=== PATIENT | female | born 1935 | race Caucasian/White ===

== ENCOUNTER 2017-08-08 22:25 | Observation (INO) | payer MEDICARE, OTHER ==
[2017-08-08] MEDS ORDERED: Sodium Chloride 0.9% 10 ML Syringe FLUSH PRN (22:50)
[2017-08-08] MEDS ORDERED: Morphine 4 MG/ML Syringe IVPUSH ONE (23:05)
[2017-08-09] MEDS ORDERED: Morphine 2 MG/ML Syringe IVPUSH PRN (00:06)
[2017-08-09] MEDS: Morphine 15 MG Tab.ER PO SCH ×3 (11:00→22:53)
--- NOTE | 2017-08-09 13:35 | HP ---
ADMISSION DATE: 08/09/2017 HISTORY OF PRESENT ILLNESS: Aliya Salcedo is an 82-year-old, female, admitted with acute chest pain. Began problematic, severe in nature. Some shortness of breath. The pain intensified. Seen at [place] [facility]. Admitted to hospital for treatment and intervention. Daily medications include: MS Contin 15 mg one p.o. b.i.d. for chronic leg pain, lisinopril/hydrochlorothiazide 20/12.5, one p.o. daily for hypertension, aspirin with caffeine 400/32, Dulcolax 5 mg two p.o. at bedtime stool enhancement, calcium 600 mg 1 daily, Ocuvite vitamin, multivitamin, and vitamin D3. ALLERGIES: No medication, environmental, or latex allergies. 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 Surgical interventions as noted. She has had a previous appendectomy. No other operative procedures, hospitalizations, unusual childhood diseases, major injuries, or fractures. SOCIAL HISTORY: Lives alone, although sister in close contact. . 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 Worked in [employer] and the [email or web address] industry. Nonsmoker. No alcohol consumption. No illicit drug use. FAMILY HISTORY: Noncontributory. REVIEW OF SYSTEMS: Chest pain as noted, bowels have been a bit irregular. Sees well, intact teeth, eats without difficulty. Bowels have been fine. Bladder has been fine. No blood in stool. Some constipation. Generalized joint complaints. PHYSICAL EXAMINATION: VITAL SIGNS: Stable and documented per exam. GENERAL: A young lady, cooperative, conversant, in good spirits. Saturations good, no oxygen. HEENT: Funduscopic benign. Bright TMs. Clear nasal discharge. Mouth and oropharynx clear. CHEST: Clear in all lung clifford. HEART: Regular without ectopy or murmur. ABDOMEN: Non-benign. A large palpable left lateral midline abdominal mass, pulsatile. PELVIC: Deferred. EXTREMITIES: Well perfused, surgical changes and radiation changes in the left lower extremity noted. LABORATORY STUDIES: White count 26,000, hemoglobin 10.3, hematocrit 31.1. Electrolytes satisfactory. GFR 48. Troponin negative x2. D-dimer not available. ASSESSMENT: Atypical chest pain, noncardiac in nature, DVT always a concern. PLAN: Intervention care, close observation, studies are appreciated, intervention, care, and treatment. /[id number] GIOVANA/KARLA
--- NOTE | 2017-08-10 06:59 | ER ---
DATE SEEN: 08/08/2017 CHIEF COMPLAINT: Chest pain. HISTORY OF PRESENT ILLNESS: This is an 82-year-old female who was brought in because of chest pain. She described tightness and chest discomfort on the left that radiates to the neck, that started suddenly tonight. There is no cough, fever, or chills. 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 She underwent radiation palliative on July 29. SOCIAL HISTORY: Lives alone. Nonsmoker. PHYSICAL EXAMINATION: GENERAL: Anxious, but not in distress. VITAL SIGNS: Temperature 98.2, pulse 84. ENT: Negative. Neck: No thyromegaly. CHEST: Clear. CARDIOVASCULAR: Normal. ABDOMEN: Soft. EXTREMITIES: Nonpitting peripheral edema. LABORATORY DATA: White cell count 26.7, hemoglobin 10.3. Electrolytes were normal. Troponin less than 0.017. BNP is 870. EKG, no ST changes. Chest x- ray, no acute process. IMPRESSION: 1. Atypical chest pain. 2. Fibrosarcoma, metastatic. PLAN: Admit for observation, comfort, and pain control. The patient was given morphine 2 mg, which helped the symptoms significantly. We will do blood cultures and repeat CBC in the morning and Dr. Arce will take over care. TIME SEEN: 2315 hours. /[id number] DOMENIC/KARLA
[2017-08-10] MEDS ORDERED: Hydrochlorothiazide/Lisinopril 12.5-20 MG Tab PO SCH (09:00)
[2017-08-10] MEDS ORDERED: Morphine 15 MG Tab.ER PO SCH (11:00)
--- NOTE | 2017-08-10 13:10 | PN ---
DATE SEEN: 08/10/2017 SUBJECTIVE: Aliya Salcedo is an 82-year-old female, admitted with acute chest pain. Origin uncertain. PE intervention, i.e. CT deferred secondary to renal function, underlying disease. Has widely metastatic sarcoma, primary recurrent site left kidney. D-dimer mildly elevated at 600, nondiagnostic. She has been observed in the last 24 hours. Chest pain has not reappeared. Vital signs have been stable. O2 sats have been comfortable. Peculiar issue, white count 26,700 on admission, repeat 21,800. Hemoglobin 10.3 and 9.2, with neutrophilia. Electrolytes were otherwise stable. Troponin x2 was negative. OBJECTIVE: VITAL SIGNS: Temperature 36.7, blood pressure 98/66, respiratory rate 18, heart rate 76, and O2 saturation 93%. GENERAL: Appears comfortable. NECK: Benign. Thyroid small. CHEST: Clear in all lung clifford. HEART: Regular without ectopy or murmur. ABDOMEN: Palpable mass, left kidney. PLAN: We will repeat CBC, observe for clinical response. Blood cultures x2 were negative, complementary care and well being. Likely discharge home today. /[id number] GIOVANA/KARLA
--- NOTE | 2017-08-12 11:16 | DISCH ---
DISCHARGE DATE: 08/10/2017 CHIEF COMPLAINT: 1. Acute chest pain, not pathologic. 2. Metastatic fibrosarcoma. HOSPITAL COURSE: Aliya Salcedo is a delightful 82-year-old female, admitted through [place] [facility] with acute chest pain and moderate shortness of breath. She was seen in the ER, pain was managed and admitted to hospital for treatment. Chest x-ray revealed no major pathology. Laboratory studies were peculiar, white count 25,000 to 28,000 with neutrophilia. Blood cultures were negative. No other source of infection was present. Looking back at last laboratory tests January 2017 at , white count was 84,000. Blood cultures remained negative. Pain was absent. CT of lung for PE not felt necessary given symptoms and resolution of pain; chronic renal failure dictated issues of impact on her kidney function. D-dimer was mildly elevated at 600, not diagnostic enough. She was observed for 24 hours. Symptoms were absent. Breathing was appropriate. Comfortable in that regard. Repeat white count continued to be similarly elevated, i.e. 27,600; 21,800; and 28,400 on the day of discharge. Otherwise feeling well. Was comfortable with discharge. Medications reviewed. PHYSICAL EXAMINATION: NECK: Benign. Thyroid small. CHEST: Clear in all lung clifford. No adventitious sounds. HEART: Regular without ectopy or murmur. ABDOMEN: Palpable left kidney mass, right lateral abdomen. EXTREMITIES: Revealed surgical post radiation changes right lower extremity. ASSESSMENT: Shortness of breath and chest pain, resolved, origin uncertain. PLAN: Again, no clinical evidence of PE. Complementary care and well-being. Discharged with medications as appropriate. We will follow up with Dr. Emily Valdes, Radiation Oncology and partner in care at [facility]. /[id number] /BRUNOL CC: Emily Valdes, Radiation Oncology at [facility]
== END 2017-08-10 12:40 | disposition home or self-care (01) ==
LOC: FB.ED 22:25 → FB.MS 08-09 00:06
PROVIDERS: ADMIT Family Medicine; ATTEND Family Medicine
DX: R07.9 Chest pain, unspecified (principal); R06.02 Shortness of breath; Z79.82 Long term (current) use of aspirin; Z79.899 Other long term (current) drug therapy
CPT/HCPCS: 36415; 71045; 80048; 80053; 83880; 84165; 84484; 85025; 85027; 85379; 87040; 93005; 96374; 99285; A9270; G0378; J2270; J7050; 99284

== ENCOUNTER 2017-09-19 16:55 | Emergency (ER) | payer MEDICARE, BC ==
--- NOTE | 2017-09-19 18:29 | EDM.PDOC ---
ED HPI GENERAL MEDICAL PROBLEM - General Chief Complaint: Head Injury Stated Complaint: HEAD LAC Time Seen by Provider: 09/19/17 17:10 Source of Information: Reports: Patient, Family History Limitations: Reports: No Limitations - History of Present Illness INITIAL COMMENTS - FREE TEXT/NARRATIVE: c/o fall walking in kitchen, felt dizzy, reached out to support herself but fell down, no LOC has been dizzy before has a sarcoma in LLE with surgery 07/27, now with large LLQ abd mass, no obstruction of bladder or bowel in and out zabala today with 300 cc urine no injury except small lac on occiput HHN comes out 2x/wk PCP Dr Sandhu did want her to restart her diuretic tomorrow - Related Data Allergies Allergy/AdvReac Type Severity Reaction Status Date / Time No Known Allergies Allergy Verified 06/20/16 13:05 Home Meds: Home Meds Lisinopril/Hydrochlorothiazide [Lisinopril-Hctz 20-12.5 mg Tab] 1 tab PO DAILY 08/08/17 [History] Morphine [MS Contin] 15 mg PO BID 08/08/17 [History] Calcium Carbonate [Calcium] 600 mg PO DAILY 08/09/17 [History] Cholecalciferol (Vitamin D3) [Vitamin D3] 1,000 unit PO DAILY 08/09/17 [History] Dextran 70/Hypromellose [Artificial Tears] 1 drop EYEBOTH DAILY 08/09/17 [ History] Lutein/Minerals/Vit A,C & E [Ocuvite] 1 tab PO DAILY 08/09/17 [History] Multivitamin [Multi-Vitamin Daily] 1 tab PO DAILY 08/09/17 [History] Past Medical History HEENT History: Reports: Impaired Vision, Other (See Below) Other HEENT History: glasses Cardiovascular History: Reports: Heart Murmur Genitourinary History: Reports: Other (See Below) Other Genitourinary History: has renal cancer Oncologic (Cancer) History: Reports: Renal, Other (See Below) Other Oncologic History: also had tumor L leg,essentially on supportive care Dermatologic History: Reports: Other (See Below) Other Dermatologic History: discolored l lower leg due to radiation treatments - Past Surgical History Female Surgical History: Reports: None Social & Family History - Family History Family Medical History: Noncontributory - Caffeine Use Caffeine Use: Reports: Coffee Caffeine Use Comment: 1 cup/day ED ROS GENERAL - Review of Systems Review Of Systems: See Below Constitutional: Reports: No Symptoms HEENT: Reports: No Symptoms Respiratory: Reports: No Symptoms Cardiovascular: Reports: No Symptoms Endocrine: Reports: No Symptoms GI/Abdominal: Reports: No Symptoms : Reports: No Symptoms Musculoskeletal: Reports: No Symptoms Skin: Reports: Other (lac of occiput) Neurological: Reports: No Symptoms Psychiatric: Reports: No Symptoms Hematologic/Lymphatic: Reports: No Symptoms Immunologic: Reports: No Symptoms ED EXAM, HEAD INJURY - Physical Exam Exam: See Below Exam Limited By: No Limitations General Appearance: Alert, WD/WN, No Apparent Distress, Other (alert, conversant , pleasant, cheerful, wearing amplifiers over each ear, able to hear okay) Head: Scalp Lacerations, Other (2 cm lac at occiput, gap of 5 mm, just thru scalp, hair trimmed, cleaned by nursing with surgical soap and then with 4 x 4 by myself, tristian x 3 applied with closure of the gap) Eyes: Bilateral Eye: EOMI, Normal Inspection Nose: Normal Inspection, Normal Mucousa, No Blood Throat/Mouth: Normal Inspection, Normal Lips, Normal Teeth, Normal Oropharynx, No Airway Compromise Neck: Non-Tender, Full Range of Motion, Normal Alignment, Normal Inspection Respiratory: No Respiratory Distress, Lungs Clear, Normal Breath Sounds Cardiovascular: Regular Rate, Rhythm, Other (2/6 GAURI at LSB, there is 3+ edema to groin b/l, symmetric, compression stockings below knees b/l) Back Exam: Full Range of Motion, Normal Inspection, NT Extremities: Non-Tender Neurologic: social group worker II-XII nml As Tested, No Motor/Sensory Deficits, Alert, Normal Mood/Affect, Oriented x 3 Skin: Normal Color, Warm/Dry - [place] Coma Score Best Eye Response (Reji): (4) Open Spontaneously Best Verbal Response (Reji): (5) Oriented Best Motor Response (Alma): (6) Obeys Commands Course - Orders/Labs/Meds Orders: Active Orders 24 hr Category Date Time Status URINALYSIS W/MICROSCOPIC [UA W/MICROSCOPIC] [URIN] Stat Lab 09/19/17 17:40 Ordered Labs: Laboratory Tests 05/10/18 05/10/18 05/10/18 Range/Units 17:20 17:20 17:20 WBC 27.6 H (4.5-12.0) X10-3/uL RBC 4.35 (3.23-5.20) x10(6)uL Hgb 11.8 (11.5-15.5) g/dL Hct 36.3 (30.0-51.3) % MCV 83.5 (80-96) fL MCH 27.1 L (27.7-33.6) pg MCHC 32.5 (32.2-35.4) g/dL RDW 20.2 H (11.5-15.5) % Plt Count 76 L (125-369) X10(3)uL MPV 8.8 (7.4-10.4) fL Add Manual Diff Yes Neutrophils % (Manual) 92 H (46-82) % Band Neutrophils % 1 (0-6) % Lymphocytes % (Manual) 2 L (13-37) % Monocytes % (Manual) 3 L (4-12) % Eosinophils % (Manual) 1 (0-5) % Basophils % (Manual) 1 (0-2) % Anisocytosis Moderate H Sodium 132 L (135-145) mmol/L Potassium 5.6 H D (3.5-5.3) mmol/L Chloride 97 L D (100-110) mmol/L Carbon Dioxide 28 (21-32) mmol/L BUN 20 H (7-18) mg/dL Creatinine 1.2 H (0.55-1.02) mg/dL Est Cr Clr Drug Dosing TNP Estimated GFR (MDRD) 43 L (>60) BUN/Creatinine Ratio 16.7 (9-20) Glucose 126 H (80-116) mg/dL Calcium 8.6 (8.6-10.2) mg/dL Total Bilirubin 0.7 (0.1-1.3) mg/dL AST 14 D (5-25) IU/L ALT 6 L D (12-36) U/L Alkaline Phosphatase 167 H (56-112) IU/L NT-Pro-B Natriuret Pep 954 H (<=450) pg/mL Total Protein 5.9 L (6.0-8.0) g/dL Albumin 2.1 L (3.2-4.6) g/dL Globulin 3.8 g/dL Albumin/Globulin Ratio 0.6 Urine Color (YELLOW) Urine Appearance (CLEAR) Urine pH (5.0-6.5) Ur Specific [place] (1.010-1.025) Urine Protein (NEGATIVE) mg/dL Urine Glucose (UA) (NEGATIVE) mg/dL Urine Ketones (NEGATIVE) mg/dL Urine Occult Blood (NEGATIVE) Urine Nitrite (NEGATIVE) Urine Bilirubin (NEGATIVE) Urine Urobilinogen (NEGATIVE) mg/dL Ur Leukocyte Esterase (NEGATIVE) Urine RBC (0) Urine WBC (0) Ur Squamous Epith Cells (NS,R,O) Amorphous Sediment Urine Bacteria (NS) Urine Mucus (NS) 09/19/17 Range/Units 17:40 WBC (4.5-12.0) X10-3/uL RBC (3.23-5.20) x10(6)uL Hgb (11.5-15.5) g/dL Hct (30.0-51.3) % MCV (80-96) fL MCH (27.7-33.6) pg MCHC (32.2-35.4) g/dL RDW (11.5-15.5) % Plt Count (125-369) X10(3)uL MPV (7.4-10.4) fL Add Manual Diff Neutrophils % (Manual) (46-82) % Band Neutrophils % (0-6) % Lymphocytes % (Manual) (13-37) % Monocytes % (Manual) (4-12) % Eosinophils % (Manual) (0-5) % Basophils % (Manual) (0-2) % Anisocytosis Sodium (135-145) mmol/L Potassium (3.5-5.3) mmol/L Chloride (100-110) mmol/L Carbon Dioxide (21-32) mmol/L BUN (7-18) mg/dL Creatinine (0.55-1.02) mg/dL Est Cr Clr Drug Dosing Estimated GFR (MDRD) (>60) BUN/Creatinine Ratio (9-20) Glucose (80-116) mg/dL Calcium (8.6-10.2) mg/dL Total Bilirubin (0.1-1.3) mg/dL AST (5-25) IU/L ALT (12-36) U/L Alkaline Phosphatase (56-112) IU/L NT-Pro-B Natriuret Pep (<=450) pg/mL Total Protein (6.0-8.0) g/dL Albumin (3.2-4.6) g/dL Globulin g/dL Albumin/Globulin Ratio Urine Color Yellow (YELLOW) Urine Appearance Slightly cloudy (CLEAR) Urine pH 5.0 (5.0-6.5) Ur Specific [place] 1.020 (1.010-1.025) Urine Protein Negative (NEGATIVE) mg/dL Urine Glucose (UA) Normal (NEGATIVE) mg/dL Urine Ketones Negative (NEGATIVE) mg/dL Urine Occult Blood Negative (NEGATIVE) Urine Nitrite Negative (NEGATIVE) Urine Bilirubin Negative (NEGATIVE) Urine Urobilinogen Normal (NEGATIVE) mg/dL Ur Leukocyte Esterase Negative (NEGATIVE) Urine RBC 0-5 (0) Urine WBC 0-5 (0) Ur Squamous Epith Cells Moderate H (NS,R,O) Amorphous Sediment Few Urine Bacteria Few H (NS) Urine Mucus Few H (NS) Departure - Departure Time of Disposition: 18:32 Disposition: Home, Self-Care 01 Condition: Good Clinical Impression: Contusion of head, Scalp laceration, CHF exacerbation - Discharge Information Instructions: Stitches, [place], or Adhesive Wound Closure, Heart Failure Referrals: PCP,Unknown [Primary Care Provider] - Additional Instructions: Start the diuretic tomorrow as per Dr Sandhu's instructions. You are getting more and more fluid backed up behind the heart due to heart failure. The diuretic will help. Use a walker when on your feet. Move slowly so that your body weight is supported by both your legs and your arms. Sit down if you feel dizzy. Have tristian removed in 1 week. While infection is very unlikely, notify Dr Sandhu the same day for any increase in redness, swelling, pain, warmth, fever or drainage. For discomfort, as needed, take acetaminphen 500 mg 2 tabs 4 times a day. Return to ED if you are feeling worse. - My Orders Last 24 Hours: My Active Orders 09/19/17 17:40 URINALYSIS W/MICROSCOPIC [UA W/MICROSCOPIC] [URIN] Stat - Assessment/Plan Last 24 Hours: My Active Orders 09/19/17 17:40 URINALYSIS W/MICROSCOPIC [UA W/MICROSCOPIC] [URIN] Stat
== END 2017-09-19 18:45 | disposition home or self-care (01) ==
LOC: FB.ED 16:55
DX: S01.01XA Laceration without foreign body of scalp, initial encounter (principal); I50.9 Heart failure, unspecified; Z79.899 Other long term (current) drug therapy; W19.XXXA Unspecified fall, initial encounter; Y92.000 Kitchen of unspecified non-institutional (private) residence as the place of occurrence of the external cause
CPT/HCPCS: 12001; 36415; 51701; 80053; 81001; 83880; 85025; 99283; 99284

== ENCOUNTER 2017-09-25 12:19 | Observation (INO) | payer MEDICARE, BC ==
[2017-09-25] MEDS ORDERED: Bisacodyl 5 MG Tab PO PRN (15:23)
[2017-09-25] MEDS ORDERED: diphenhydrAMINE 25 MG Cap PO PRN (15:23)
[2017-09-25] MEDS ORDERED: Polyethylene Glycol 3350 Powder 17 GM Packet PO PRN (15:35)
[2017-09-25] MEDS ORDERED: Morphine 10 MG/ML Syringe IM PRN (15:44)
[2017-09-25] MEDS ORDERED: ASPIRIN PO SCH (15:45)
[2017-09-25] MEDS ORDERED: Non-Formulary Medication 1 Each (Furosemide [Furosemide] 20 MG) PO SCH (15:45)
[2017-09-25] MEDS ORDERED: Morphine 15 MG Tab.ER PO SCH (15:45)
[2017-09-25] MEDS ORDERED: CAFFEINE PO SCH (15:45)
[2017-09-25] MEDS: Furosemide 20 MG Tab *PTOM PO SCH (18:35)
[2017-09-25] MEDS ORDERED: Enoxaparin 30 MG/0.3 ML Syringe SUBCUT SCH (19:00)
--- NOTE | 2017-09-25 19:15 | PCM.HP ---
H&P History of Present Illness - General Date of Service: 09/25/17 Admit Problem/Dx: Admission Diagnosis/Problem Admission Diagnosis/Problem Dyspnea Source of Information: Family History Limitations: Reports: No Limitations - History of Present Illness Initial Comments - Free Text/Narative: This is an 82-year-old female patient with end-stage sarcoma the left lower extremity. She is staying with her sister who is just as old as she is. The patient fell a week ago and sustained laceration her head. Since then has become more weak to the point where her sister cannot take care of her. She is going to go to the intermediate in the next couple days but they didn't have a bed available yet. In the sister cannot lift her so she brought her into the ER. She was found to have hyponatremia, elevated white count with no signs of infection and renal failure. She that she always has a little runny nose patient denies fevers or chills, ear pain she has chest pain, cough etc. in the morning. She denies abdominal she has a BM in a week she has no diarrhea, dysuria, pyuria, hematuria. bilat legs Pain Score (Numeric/FACES): 2 - Related Data Allergies/Adverse Reactions: Allergies Allergy/AdvReac Type Severity Reaction Status Date / Time No Known Allergies Allergy Verified 09/25/17 11:13 Home Medications: Home Meds Aspirin/Caffeine [Anacin 400-32 mg Tablet] 1 each PO DAILY 09/25/17 [History] Bisacodyl [Dulcolax] 10 mg PO BEDTIME 09/25/17 [History] Calcium Carbonate [Calcium] 600 mg PO DAILY 09/25/17 [History] Cholecalciferol (Vitamin D3) [Vitamin D3] 1,000 units PO DAILY 09/25/17 [History ] Furosemide 20 mg PO DAILY 09/25/17 [History] Lutein/Minerals/Vit A,C & E [Ocuvite] 1 tab PO DAILY 09/25/17 [History] Morphine [MS Contin] 15 mg PO BID 09/25/17 [History] Multivitamin [Daily Tito] 1 each PO DAILY 09/25/17 [History] Polyethylene Glycol 3350 [MiraLAX] 17 gm PO DAILY PRN 09/25/17 [History] Past Medical History HEENT History: Reports: Impaired Vision, Other (See Below) Other HEENT History: glasses Cardiovascular History: Reports: Heart Murmur, Hypertension Gastrointestinal History: Reports: Other (See Below) Other Gastrointestinal History: peritoneal cancer Genitourinary History: Reports: Other (See Below) Other Genitourinary History: has adrenal cancer Oncologic (Cancer) History: Reports: Renal, Other (See Below) Other Oncologic History: also had tumor L leg,essentially on supportive care Dermatologic History: Reports: Other (See Below) Other Dermatologic History: discolored l lower leg due to radiation treatments - Infectious Disease History Infectious Disease History: Reports: Chicken Pox, Measles, Mumps - Past Surgical History Female Surgical History: Reports: None Social & Family History - Family History Family Medical History: Noncontributory - Tobacco Use Smoking Status *Q: Never Smoker Second Hand Smoke Exposure: No - Caffeine Use Caffeine Use: Reports: None Caffeine Use Comment: 1 cup/day - Recreational Drug Use Recreational Drug Use: No H&P Review of Systems - Review of Systems: Review Of Systems: See Below General: Reports: Malaise, Weakness HEENT: Reports: No Symptoms Pulmonary: Reports: Cough (In the a.m. only) Cardiovascular: Reports: No Symptoms Gastrointestinal: Reports: Constipation. Denies: Abdominal Pain, Bloody Stool Genitourinary: Reports: No Symptoms Musculoskeletal: Reports: Other (Leg swelling bilateral from the cancer left worse than right.) Skin: Reports: Other (Heels have symptoms ulcers on the heels and the buttocks per) Psychiatric: Reports: No Symptoms Neurological: Reports: No Symptoms Hematologic/Lymphatic: Reports: No Symptoms Immunologic: Reports: No Symptoms Exam - Exam Exam: See Below - Vital Signs Vital Signs: Last Vital Signs Temp 97.3 F 09/25/17 15:40 Pulse 80 09/25/17 15:40 Resp 20 09/25/17 15:40 BP 126/79 09/25/17 15:40 Pulse Ox 90 L 09/25/17 15:40 Weight: 211 lb 12.8 oz - Exam Quality Assessment: Supplemental Oxygen General: Alert HEENT: Hearing Intact (But decrease), Mucosa Moist & Dunean, TMs Clear Neck: Supple, Trachea Midline Lungs: Clear to Auscultation, Normal Respiratory Effort. No: Crackles, Rales, Rhonchi Cardiovascular: Regular Rate, Regular Rhythm, Normal S1, Normal S2. No: Systolic Murmur, Diastolic Murmur GI/Abdominal Exam: Normal Bowel Sounds, Soft, Non-Tender, No Organomegaly, No Abnormal Bruit, Distended Extremities: Pedal Edema Skin: Other (Large ulcer right heel with black eschar. Left heel has some erythema. Smiled ulcer but talks) Neurological: Normal Speech, Normal Tone Neuro Extensive - Mental Status: Alert, Oriented x3, Normal Mood/Affect, Normal Cognition, Memory Intact Neuro Extensive - Motor, Sensory, Reflexes: No: Normal Gait Psychiatric: Alert - Patient Data Lab Results Last 24 hrs: Laboratory Results - last 24 hr 09/25/17 09/25/17 09/25/17 Range/Units 14:25 14:25 14:25 WBC 32.5 H* (4.5-12.0) X10-3/uL RBC 4.44 (3.23-5.20) x10(6)uL Hgb 12.1 (11.5-15.5) g/dL Hct 36.8 (30.0-51.3) % MCV 82.9 (80-96) fL MCH 27.2 L (27.7-33.6) pg MCHC 32.9 (32.2-35.4) g/dL RDW 20.9 H (11.5-15.5) % Plt Count 41 L (125-369) X10(3)uL MPV 9.4 (7.4-10.4) fL Add Manual Diff Yes Neutrophils % (Manual) 95 H (46-82) % Band Neutrophils % 1 (0-6) % Monocytes % (Manual) 2 L (4-12) % Eosinophils % (Manual) 2 (0-5) % D-Dimer, Quantitative 3.25 H (0.0-0.59) mg/LFEU Sodium (135-145) mmol/L Potassium (3.5-5.3) mmol/L Chloride (100-110) mmol/L Carbon Dioxide (21-32) mmol/L BUN (7-18) mg/dL Creatinine (0.55-1.02) mg/dL Est Cr Clr Drug Dosing mL/min Estimated GFR (MDRD) (>60) BUN/Creatinine Ratio (9-20) Glucose (80-116) mg/dL Calcium (8.6-10.2) mg/dL Total Bilirubin (0.1-1.3) mg/dL AST (5-25) IU/L ALT (12-36) U/L Alkaline Phosphatase (56-112) IU/L Troponin I 0.048 (<0.017-0.056) ng/mL Total Protein (6.0-8.0) g/dL Albumin (3.2-4.6) g/dL Globulin g/dL Albumin/Globulin Ratio 05/16/18 Range/Units 14:25 WBC (4.5-12.0) X10-3/uL RBC (3.23-5.20) x10(6)uL Hgb (11.5-15.5) g/dL Hct (30.0-51.3) % MCV (80-96) fL MCH (27.7-33.6) pg MCHC (32.2-35.4) g/dL RDW (11.5-15.5) % Plt Count (125-369) X10(3)uL MPV (7.4-10.4) fL Add Manual Diff Neutrophils % (Manual) (46-82) % Band Neutrophils % (0-6) % Monocytes % (Manual) (4-12) % Eosinophils % (Manual) (0-5) % D-Dimer, Quantitative (0.0-0.59) mg/LFEU Sodium 123 L (135-145) mmol/L Potassium 5.7 H (3.5-5.3) mmol/L Chloride 91 L D (100-110) mmol/L Carbon Dioxide 27 (21-32) mmol/L BUN 43 H D (7-18) mg/dL Creatinine 2.4 H* (0.55-1.02) mg/dL Est Cr Clr Drug Dosing 20.22 mL/min Estimated GFR (MDRD) 19 L (>60) BUN/Creatinine Ratio 17.9 (9-20) Glucose 99 (80-116) mg/dL Calcium 8.8 (8.6-10.2) mg/dL Total Bilirubin 0.8 (0.1-1.3) mg/dL AST 19 D (5-25) IU/L ALT 6 L (12-36) U/L Alkaline Phosphatase 157 H (56-112) IU/L Troponin I (<0.017-0.056) ng/mL Total Protein 5.6 L (6.0-8.0) g/dL Albumin 2.0 L (3.2-4.6) g/dL Globulin 3.6 g/dL Albumin/Globulin Ratio 0.6 Result Diagrams: 09/25/17 14:25 09/25/17 14:25 - Problem List (1) Retroperitoneal sarcoma SNOMED Code(s): 750585405, 229144602 ICD Code: C48.0 - MALIGNANT NEOPLASM OF RETROPERITONEUM Status: Acute Current Visit: Yes (2) Hyponatremia SNOMED Code(s): 92776913 ICD Code: E87.1 - HYPO-OSMOLALITY AND HYPONATREMIA Status: Acute Current Visit: Yes (3) Chronic renal failure SNOMED Code(s): 96608985, 541313998 ICD Code: N18.9 - CHRONIC KIDNEY DISEASE, UNSPECIFIED Status: Acute Current Visit: Yes (4) Weakness SNOMED Code(s): 48654895 ICD Code: R53.1 - WEAKNESS Status: Acute Current Visit: Yes (5) Falls SNOMED Code(s): 9426927, 083050572 ICD Code: W19.XXXA - UNSPECIFIED FALL, INITIAL ENCOUNTER Status: Acute Current Visit: Yes (6) Leukocytosis SNOMED Code(s): 453862108, 526882323 ICD Code: D72.829 - ELEVATED WHITE BLOOD CELL COUNT, UNSPECIFIED Status: Acute Current Visit: Yes (7) Peripheral edema SNOMED Code(s): 485424081 ICD Code: R60.9 - EDEMA, UNSPECIFIED Status: Acute Current Visit: Yes (8) Pressure ulcer SNOMED Code(s): 805974512 ICD Code: L89.90 - PRESSURE ULCER OF UNSPECIFIED SITE, UNSPECIFIED STAGE Status: Acute Current Visit: Yes Problem List Initiated/Reviewed/Updated: Yes Orders Last 24hrs: Active Orders 24 hr Category Date Time Status Patient Status [ADT] Routine ADT 09/25/17 15:23 Active Patient Status [ADT] Routine ADT 09/25/17 19:00 Ordered Oxygen Therapy [RC] PRN Care 09/25/17 15:23 Active Oxygen Therapy [RC] PRN Care 09/25/17 19:00 Ordered Up With Assistance [RC] ASDIRECTED Care 09/25/17 19:00 Ordered VTE/DVT Education [RC] Per Unit Routine Care 09/25/17 19:00 Ordered Vital Signs [RC] QSHIFT Care 09/25/17 19:00 Ordered Full Liquid Diet [DIET] Diet 09/25/17 Dinner Ordered Regular Diet [DIET] Diet 09/25/17 Dinner Active CXR [Chest 1V Frontal] [CR] Stat Exams 09/25/17 13:56 Taken Aspirin/Caffeine [Anacin 400-32 mg Tablet] Med 09/25/17 15:45 Pending 1 each PO DAILY Bisacodyl [Dulcolax] Med 09/25/17 21:00 Active 10 mg PO BEDTIME Bisacodyl [Dulcolax] Med 09/25/17 15:23 Active 10 mg PO DAILY PRN Calcium Carbonate/Vitamin D3 [Calcium Carbonate/Vitamin Med 09/26/17 09:00 Active D 1250 MG-200 Unit] 1 tab PO DAILY Cholecalciferol (Vitamin D3) [Vitamin D3] Med 09/26/17 09:00 Active 1,000 units PO DAILY Enoxaparin [Lovenox] Med 09/25/17 19:00 Ordered 30 mg SUBCUT Q24H Furosemide [Lasix] Med 09/25/17 15:45 Active 20 mg PO DAILY Lutein/Min/Vit C/Vit E Acetate [Ocuvite Lutein] Med 09/26/17 09:00 Active 1 each PO DAILY Morphine Med 09/25/17 15:44 Active 4 mg IM Q2H PRN Morphine [MS Contin] Med 09/25/17 20:00 Ordered 15 mg PO 08,20 Multivitamins [Tab-A-Tito] Med 09/26/17 09:00 Active 1 tab PO DAILY Polyethylene Glycol 3350 [MiraLAX] Med 09/25/17 15:45 Active 17 gm PO DAILY Polyethylene Glycol 3350 [MiraLAX] Med 09/25/17 15:35 Active 17 gm PO DAILY PRN diphenhydrAMINE [Benadryl] Med 09/25/17 15:23 Active 25 mg PO Q4H PRN RT Suction Nasopharyngeal [RESPCARE] Routine Oth 09/25/17 15:23 Active Resuscitation Status Routine Resus Stat 09/25/17 15:23 Ordered Medication Orders Bisacodyl (Dulcolax) 10 mg PO DAILY PRN PRN Reason: Constipation Bisacodyl (Dulcolax) 10 mg PO BEDTIME [facility] Calcium Carbonate (Calcium Carbonate/Vitamin D 1250 Mg-200 Unit) 1 tab PO DAILY [facility] Cholecalciferol (Vitamin D3) 1,000 units PO DAILY [facility] Diphenhydramine HCl (Benadryl) 25 mg PO Q4H PRN PRN Reason: Nausea Enoxaparin Sodium (Lovenox) 30 mg SUBCUT Q24H [facility] Furosemide (Lasix) 20 mg PO DAILY [facility] Last Admin: 09/25/17 18:35 Dose: Morphine Sulfate (Morphine) 4 mg IM Q2H PRN PRN Reason: PAIN Morphine Sulfate (Ms Contin) 15 mg PO BID@0800,1999 [facility] Multivitamins/Minerals/Vitamin C (Tab-A-Tito) 1 tab PO DAILY [facility] Non-Formulary Medication (Aspirin/Caffeine [Anacin 400-32 Mg Tablet]) 1 each PO DAILY [facility] Polyethylene Glycol (Miralax) 17 gm PO DAILY [facility] Polyethylene Glycol (Miralax) 17 gm PO DAILY PRN PRN Reason: Constipation Vit C/Vit E/Zinc/Copper/Lutein (Ocuvite Lutein) 1 each PO DAILY [facility] Assessment/Plan Comment:: 1. Admit for observation. 2. Continue home meds including her morphine. 3. Work on intermediate placement. 4. Hospice. 5. Up with assist. 6. Regular diet. 7. VTE prophylaxis.
[2017-09-25] MEDS: Polyethylene Glycol 3350 Powder 17 GM Packet PO SCH (19:19)
[2017-09-25] MEDS: Morphine 15 MG Tab.ER PO SCH (20:24)
[2017-09-25] MEDS: Bisacodyl 5 MG Tab PO SCH (20:28)
[2017-09-26] MEDS ORDERED: Ondansetron 4 MG/2 ML SDV IVPUSH PRN (00:41)
[2017-09-26] MEDS ORDERED: Sodium Chloride 0.9% 10 ML Syringe FLUSH PRN (00:51)
[2017-09-26] MEDS ORDERED: Morphine 15 MG Tab.ER PO SCH (04:00)
--- NOTE | 2017-09-26 08:13 | PCM.PN ---
- General Info Date of Service: 09/26/17 Admission Dx/Problem (Free Text): Patient has no complaints. She feels she is getting good care for the nurses. She denies shortness of breath, wheezing, chest pain. - Patient Data Vitals - Most Recent: Last Vital Signs Temp 97.3 F 09/25/17 15:40 Pulse 80 09/25/17 15:40 Resp 16 09/26/17 01:00 BP 99/56 L 09/26/17 01:00 Pulse Ox 90 L 09/26/17 01:00 Weight - Most Recent: 211 lb 12.8 oz Lab Results Last 24 Hours: Laboratory Results - last 24 hr 09/25/17 09/25/17 09/25/17 Range/Units 14:25 14:25 14:25 WBC 32.5 H* (4.5-12.0) X10-3/uL RBC 4.44 (3.23-5.20) x10(6)uL Hgb 12.1 (11.5-15.5) g/dL Hct 36.8 (30.0-51.3) % MCV 82.9 (80-96) fL MCH 27.2 L (27.7-33.6) pg MCHC 32.9 (32.2-35.4) g/dL RDW 20.9 H (11.5-15.5) % Plt Count 41 L (125-369) X10(3)uL MPV 9.4 (7.4-10.4) fL Add Manual Diff Yes Neutrophils % (Manual) 95 H (46-82) % Band Neutrophils % 1 (0-6) % Monocytes % (Manual) 2 L (4-12) % Eosinophils % (Manual) 2 (0-5) % D-Dimer, Quantitative 3.25 H (0.0-0.59) mg/LFEU Sodium (135-145) mmol/L Potassium (3.5-5.3) mmol/L Chloride (100-110) mmol/L Carbon Dioxide (21-32) mmol/L BUN (7-18) mg/dL Creatinine (0.55-1.02) mg/dL Est Cr Clr Drug Dosing mL/min Estimated GFR (MDRD) (>60) BUN/Creatinine Ratio (9-20) Glucose (80-116) mg/dL Calcium (8.6-10.2) mg/dL Total Bilirubin (0.1-1.3) mg/dL AST (5-25) IU/L ALT (12-36) U/L Alkaline Phosphatase (56-112) IU/L Troponin I 0.048 (<0.017-0.056) ng/mL Total Protein (6.0-8.0) g/dL Albumin (3.2-4.6) g/dL Globulin g/dL Albumin/Globulin Ratio // Range/Units 14:25 WBC (4.5-12.0) X10-3/uL RBC (3.23-5.20) x10(6)uL Hgb (11.5-15.5) g/dL Hct (30.0-51.3) % MCV (80-96) fL MCH (27.7-33.6) pg MCHC (32.2-35.4) g/dL RDW (11.5-15.5) % Plt Count (125-369) X10(3)uL MPV (7.4-10.4) fL Add Manual Diff Neutrophils % (Manual) (46-82) % Band Neutrophils % (0-6) % Monocytes % (Manual) (4-12) % Eosinophils % (Manual) (0-5) % D-Dimer, Quantitative (0.0-0.59) mg/LFEU Sodium 123 L (135-145) mmol/L Potassium 5.7 H (3.5-5.3) mmol/L Chloride 91 L D (100-110) mmol/L Carbon Dioxide 27 (21-32) mmol/L BUN 43 H D (7-18) mg/dL Creatinine 2.4 H* (0.55-1.02) mg/dL Est Cr Clr Drug Dosing 20.22 mL/min Estimated GFR (MDRD) 19 L (>60) BUN/Creatinine Ratio 17.9 (9-20) Glucose 99 (80-116) mg/dL Calcium 8.8 (8.6-10.2) mg/dL Total Bilirubin 0.8 (0.1-1.3) mg/dL AST 19 D (5-25) IU/L ALT 6 L (12-36) U/L Alkaline Phosphatase 157 H (56-112) IU/L Troponin I (<0.017-0.056) ng/mL Total Protein 5.6 L (6.0-8.0) g/dL Albumin 2.0 L (3.2-4.6) g/dL Globulin 3.6 g/dL Albumin/Globulin Ratio 0.6 Med Orders - Current: Current Medications Bisacodyl (Dulcolax) 10 mg PO DAILY PRN PRN Reason: Constipation Bisacodyl (Dulcolax) 10 mg PO BEDTIME [facility] Last Admin: 09/25/17 20:28 Dose: 10 mg Calcium Carbonate (Calcium Carbonate/Vitamin D 1250 Mg-200 Unit) 1 tab PO DAILY [facility] Cholecalciferol (Vitamin D3) 1,000 units PO DAILY [facility] Diphenhydramine HCl (Benadryl) 25 mg PO Q4H PRN PRN Reason: Nausea Furosemide (Lasix) 20 mg PO DAILY [facility] Last Admin: 09/25/17 18:35 Dose: Not Given Morphine Sulfate (Morphine) 4 mg IM Q2H PRN PRN Reason: PAIN Morphine Sulfate (Ms Contin) 15 mg PO BID@0800,2000 [facility] Last Admin: 09/25/17 20:24 Dose: 15 mg Multivitamins/Minerals/Vitamin C (Tab-A-Tito) 1 tab PO DAILY [facility] Non-Formulary Medication (Aspirin/Caffeine [Anacin 400-32 Mg Tablet]) 1 each PO DAILY [facility] Ondansetron HCl (Zofran) 4 mg IVPUSH Q6H PRN PRN Reason: Nausea/Vomiting Last Admin: 09/26/17 00:48 Dose: 4 mg Polyethylene Glycol (Miralax) 17 gm PO DAILY [facility] Last Admin: 09/25/17 19:19 Dose: Not Given Polyethylene Glycol (Miralax) 17 gm PO DAILY PRN PRN Reason: Constipation Sodium Chloride (Saline Flush) 10 ml FLUSH ASDIRECTED PRN PRN Reason: Keep Vein Open Vit C/Vit E/Zinc/Copper/Lutein (Ocuvite Lutein) 1 each PO DAILY [facility] Discontinued Medications Enoxaparin Sodium (Lovenox) 30 mg SUBCUT Q24H [facility] Last Admin: 09/25/17 21:03 Dose: Not Given Morphine Sulfate (Ms Contin) 15 mg PO Q12H [facility] - Exam General: Alert, Oriented, Cooperative Lungs: Clear to Auscultation, Normal Respiratory Effort Cardiovascular: Regular Rate, Regular Rhythm, No Murmurs Extremities: Pedal Edema Psy/Mental Status: Alert, Normal Affect, Normal Mood - Problem List & Annotations (1) Retroperitoneal sarcoma SNOMED Code(s): 905995248, 714239701 Code(s): C48.0 - MALIGNANT NEOPLASM OF RETROPERITONEUM Status: Acute Current Visit: Yes (2) Hyponatremia SNOMED Code(s): 05327350 Code(s): E87.1 - HYPO-OSMOLALITY AND HYPONATREMIA Status: Acute Current Visit: Yes (3) Chronic renal failure SNOMED Code(s): 54248771, 303639263 Code(s): N18.9 - CHRONIC KIDNEY DISEASE, UNSPECIFIED Status: Acute Current Visit: Yes (4) Weakness SNOMED Code(s): 12140747 Code(s): R53.1 - WEAKNESS Status: Acute Current Visit: Yes (5) Falls SNOMED Code(s): 8593567, 201924749 Code(s): W19.XXXA - UNSPECIFIED FALL, INITIAL ENCOUNTER Status: Acute Current Visit: Yes (6) Leukocytosis SNOMED Code(s): 745048461, 207553679 Code(s): D72.829 - ELEVATED WHITE BLOOD CELL COUNT, UNSPECIFIED Status: Acute Current Visit: Yes (7) Peripheral edema SNOMED Code(s): 222149630 Code(s): R60.9 - EDEMA, UNSPECIFIED Status: Acute Current Visit: Yes (8) Pressure ulcer SNOMED Code(s): 171484510 Code(s): L89.90 - PRESSURE ULCER OF UNSPECIFIED SITE, UNSPECIFIED STAGE Status: Acute Current Visit: Yes - Problem List Review Problem List Initiated/Reviewed/Updated: Yes - My Orders Last 24 Hours: My Active Orders 09/25/17 19:00 Patient Status [ADT] Routine Oxygen Therapy [RC] PRN Up With Assistance [RC] ASDIRECTED VTE/DVT Education [RC] Per Unit Routine Vital Signs [RC] 08,16,00 09/25/17 20:00 Morphine [MS Contin] 15 mg PO BID@0800,2000 09/25/17 Dinner Full Liquid Diet [DIET] 09/26/17 00:51 Sodium Chloride 0.9% [Saline Flush] 10 ml FLUSH ASDIRECTED PRN - Plan Plan:: 1.Await [facility] placement. 2. Continue current care.
[2017-09-26] MEDS: Morphine 15 MG Tab.ER PO SCH ×2 (08:15→19:51)
[2017-09-26] MEDS: Polyethylene Glycol 3350 Powder 17 GM Packet PO SCH (08:16)
[2017-09-26] MEDS: Furosemide 20 MG Tab *PTOM PO SCH (08:17)
[2017-09-26] MEDS ORDERED: Lutein/Minerals/Vitamin C/Vitamin E Acetate Cap PO SCH (09:00)
[2017-09-26] MEDS ORDERED: Calcium Carbonate/Vitamin D3 1250 MG-200 Unit Tab PO SCH (09:00)
[2017-09-26] MEDS ORDERED: Multivitamin Tab PO SCH (09:00)
[2017-09-26] MEDS ORDERED: Cholecalciferol (Vitamin D3) 1,000 Unit Tab PO SCH (09:00)
--- NOTE | 2017-09-26 09:07 | CR ---
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 CHEST: An AP upright view of the chest portable, 09/25/2017, was compared with 08/08/2017. A very poor inspiration is noted. There is an appearance of exogenous obesity. Heart size is difficult to evaluate but may be enlarged. The aorta is tortuous with calcification suggested in the arch. A definite active infiltrate or effusion was not identified but cannot be excluded, especially at the left lung base, due to the poor inspiration. When clinically possible, full inspiration frontal and lateral views of the chest may be helpful for further evaluation. MTDD
--- NOTE | 2017-09-26 09:07 | ER ---
DATE SEEN: 09/25/2017 TIME SEEN: The patient was seen on arrival at 1256 hours. 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 Family's inability to care for her anymore at home. Dyspnea without exertion. Here for end-of-life care. She is supposed to be placed in a snf tomorrow and/or soon as abed can be made available. Consequently, family wants the patient placed in the hospital to further manage until she can be placed in a snf. History of constipation, ankle swelling, and CHF. She wears ear phones to help with hearing. Today, cannot hear because the batteries have not changed. We changed in the ER, and her hearing improved remarkably. 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 She has gotten along well with morphine 15 mg and OxyContin b.i.d. ALLERGIES: None. MEDICATIONS: 1. Dulcolax. 2. Benadryl. 3. Lasix. 4. Morphine. 5. Aspirin. 6. Caffeine - Anacin 200/31. 7. Calcium carbonate. 8. Vitamin D. 9. Ocuvite. 10.MiraLax. REVIEW OF SYSTEMS: As above with HEENT: Decreased hearing. She wears glasses. Decreased vision. She has her own teeth. No difficulty swallowing. LUNGS: She has mild shortness of breath, and on 2 L of O2 with an oxygen saturation of 94%. CARDIORESPIRATORY: She denies chest pain and has mild increasing shortness of breath. GASTROINTESTINAL: Increased difficulty eating with anorexia, but is eating. No diarrhea. Has stools. Increased abdominal mass and bloating. BACK: Mild back discomfort. EXTREMITIES: Lower extremities with increased edema. PHYSICAL EXAMINATION: VITAL SIGNS: Blood pressure 98/59, heart rate 74 regular, respirations 18, oxygen saturation 94% on 2 L of O2, and 36.6 degrees centigrade temperature. GENERAL: This is asthenic woman with very protuberant abdomen. There is no acute distress because she had MS Contin this morning. HEENT: PERRLA intact. She has ear phones in place, which do not work, consequently we put new in batteries in here and she is able to hear now. Periodically, she would take off the ear phones to hear better, just because apparently they become dysfunctional or they have a musical wine to them periodically. Pharynx without abnormality. Gag in place. LUNGS: Clear to auscultation. HEART: S1 and S2. No irregular rate or rhythm. S2 is slightly greater than S1. ABDOMEN: Increased abdominal girth. Ascites is noted. Mass effect in left middle abdomen with a mild groin discomfort subjectively, but not present now because she has morphine. No CVA percussion tenderness. MUSCULOSKELETAL: No spinous process tenderness of lower back. Lower extremities with extensive edema that goes to her mid thighs, 2+ to 3+. Dorsalis pedis is intact. No discoloration in extremities (family had described that she had black feet), but there is no black feet. LABORATORY FINDINGS: Neutrophilic leukocytosis with thrombocytopenia of 41,000 and white count of 32,500. Hyponatremia with sodium of 123, potassium 5.9, chloride 91, CO2 of 27, BUN 43, creatinine 2.4, creatinine clearance 20.22, and GFR 19. Chronic kidney disease, stage IV. Alkaline phosphatase elevation mild of 157 secondary to cancer and bone involvement. Total protein of 5.6 and albumin of 2.0 with a calculated calcium of 9.6. Chest x-ray showed poor respiratory effort, mass in the right middle lobe, and inspiratory effort to 8th rib, posterior ribs. No cardiomegaly. ASSESSMENT: 1. Hyponatremia and hypochloremia secondary to Lasix use. 2. Elevated D-dimer secondary to sarcoma. 3. 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 4. Decreased hearing. 5. Dyspnea at rest. 6. Stage IV chronic kidney disease. 7. Hypoalbuminemia and hypoproteinemia secondary to cancer. 8. Neutrophilic leukocytosis. PLAN: The patient is to be admitted. Hopefully arrangements can be made for transfer of care to the [facility]. The patient is declining healthcare amd has marked rapid decline in her health. /[id number] JOSIANE/KARLA SUAREZ
[2017-09-26] MEDS ORDERED: Tuberculin, PPD 5 Units/0.1 ML 1 ML MDV IDERM ONE (10:58)
[2017-09-26] MEDS: Bisacodyl 5 MG Tab PO SCH (20:43)
[2017-09-27] MEDS: Morphine 15 MG Tab.ER PO SCH (08:49)
[2017-09-27] MEDS: Furosemide 20 MG Tab *PTOM PO SCH (08:50)
[2017-09-27] MEDS: Polyethylene Glycol 3350 Powder 17 GM Packet PO SCH (08:50)
--- NOTE | 2017-09-27 09:33 | DISCH ---
DISCHARGE DATE: 09/27/2017 DISCHARGE DIAGNOSES: Advanced metastatic carcinoma with weakness, disability, recurrent fall, and head laceration. HOSPITAL COURSE: Aliya Salcedo is an 82-year-old female, admitted with weakness, fatigue, recurrent falls, complicated scalp laceration, declining well-being with metastatic sarcoma, which began in the left lower extremity. She has had multiple surgical procedures. On admission, she was found to be profoundly weak, unable to care for herself. Laboratory studies of significance: White count 32,500, hemoglobin 12.2, D- dimer 3.25, sodium 124, creatinine 2.4, GFR of 19. Chest x-ray on 09/25/2017 revealed nothing pathologic. During her hospital stay, she was evaluated for consideration of care. Hospice was addressed and recommended to be allowed. Feeling better. Shortness of breath, generalized pain is minimal. PHYSICAL EXAMINATION: VITAL SIGNS: 36.4, 68, 83/49, mean blood pressure is 60, 18, respirations 97. GENERAL: Soft spoken, markedly hard of hearing. NECK: Benign. Thyroid small. CHEST: Clear in all lung clifford. HEART: Regular without ectopy or murmur. ABDOMEN: Benign. LOWER EXTREMITIES: Marked postsurgical inflammatory changes, both lower extremities. ASSESSMENT: Metastatic sarcoma. PLAN: Comfort measures, critical care, and hospice involved. Discharged to [facility], complementary care, and well being. We will follow closely in that regard. ADDENDUM: A 30-minute visit, planning discussion, and discharged from the hospital. /[id number] /KARLA
== END 2017-09-27 09:25 ==
LOC: FB.ED 12:19 → FB.MS 15:28
PROVIDERS: ADMIT Family Medicine; ATTEND Family Medicine
DX: C49.9 Malignant neoplasm of connective and soft tissue, unspecified (principal); S01.01XA Laceration without foreign body of scalp, initial encounter; E87.1 Hypo-osmolality and hyponatremia; D72.829 Elevated white blood cell count, unspecified; L89.90 Pressure ulcer of unspecified site, unspecified stage; C78.6 Secondary malignant neoplasm of retroperitoneum and peritoneum; C79.71 Secondary malignant neoplasm of right adrenal gland; I13.0 Hypertensive heart and chronic kidney disease with heart failure and stage 1 through stage 4 chronic kidney disease, or unspecified chronic kidney disease; N18.4 Chronic kidney disease, stage 4 (severe); I50.9 Heart failure, unspecified; R18.8 Other ascites; T50.1X5A Adverse effect of loop [high-ceiling] diuretics, initial encounter; R79.1 Abnormal coagulation profile; E88.09 Other disorders of plasma-protein metabolism, not elsewhere classified; E77.8 Other disorders of glycoprotein metabolism; D70.9 Neutropenia, unspecified; W19.XXXA Unspecified fall, initial encounter; Z91.81 History of falling; Z79.82 Long term (current) use of aspirin; Z79.899 Other long term (current) drug therapy
CPT/HCPCS: 36415; 51702; 71045; 80053; 84484; 85025; 85379; 86580; 99285; A9270; J2405; 96374; 99217; 99219; 99225; 99284; G0378